=== PATIENT | male | born 1970 | race Caucasian/White ===

== ENCOUNTER 2017-09-13 17:58 | Emergency (ER) | payer OTHER ==
[~2017-09-13] VITALS: Ht 170.2 cm; Wt 72.6 kg
[2017-09-13 18:54] VITALS: BP 134/90
[2017-09-13 19:36] LABS: APPEARANCE,URINE HAZY (CLEAR); BILIRUBIN,URINE NEGATIVE (NEGATIVE); BLOOD, URINE NEGATIVE (NEGATIVE); COLOR,URINE YELLOW (YELLOW); LEUKOCYTE ESTERASE ,URINE NEGATIVE (NEGATIVE); NITRITE, URINE NEGATIVE (NEGATIVE); UGLUCOSE 3+ (NEGATIVE)
[2017-09-13 19:38] LABS: BASOPHILS # (AUTO) 0.3 K/uL (0.00-0.22); EOSINOPHILS # (AUTO) 0.2 K/uL (0-0.4); HEMOGLOBIN 15.3 g/dL (12.0-18.0); MEAN CORPUSCULAR HEMOGLOBIN 28 pg (27-31); MEAN CORPUSCULAR HGB CONC 32 g/dL (33-37); MEAN CORPUSCULAR VOLUME 88 fL (80-94); MONOCYTES # (AUTO) 0.5 K/uL (0.8-1.0); NEUTROPHILS # (AUTO) 4.7 K/uL (1.8-7.7); PLATELET COUNT (AUTO) 322 K/uL (140-450); RED BLOOD CELL COUNT(AUTO) 5.44 MIL/uL (4.20-6.10); RED CELL DISTRIBUTION WIDTH 12.5 % (11.6-13.7); WHITE BLOOD COUNT (AUTO) 7.7 K/uL (4.8-10.8)
[2017-09-13 19:52] LABS: RBC,URINE 3-10 (FEW) /HPF (0-5)
[2017-09-13 19:53] LABS: WBC,URINE 0-5 (RARE) /HPF (0-5)
[2017-09-13 19:56] LABS: PROTHROMBIN TIME 10.1 secs (10.8-13.4)
[2017-09-13 20:01] LABS: ALBUMIN 3.6 g/dL (3.4-5.0); ANION GAP 8.9 (8-16); CARBON DIOXIDE 30.1 mmol/L (21-32); CREATININE 1.1 mg/dL (0.7-1.3); TOTAL BILIRUBIN 0.4 mg/dL (0.0-1.0)
--- NOTE | 2017-09-13 20:28 | NUR ---
Pt taken to bed 4.
[2017-09-13 21:01] VITALS: BP 131/87
--- NOTE | 2017-09-13 21:04 | NUR ---
47Y/M PT. PRESENTS TO ED WITH C/O UNPROVOKED LEFT SIDED CP X THIS AM, RADIATING TO LEFT SCAPULA, DENIES INJURY/TRAUMA. HX. DM, HTN. AAO X4, AMBULATORY WITH STDEAY GAIT. REPSIRATIONS ROOM AIR, EVEN AND UNLABORED, BL LUNGS CLEAR. C/O CHEST PAIN WHEN MOVE 5/10. VSS, ER MD MADE AWARE OF PT. STATUS.
--- NOTE | 2017-09-13 22:31 | NUR ---
PATIENT ELOPED FROM FACILITY. DISCHARGE INSTRUCTIONS NOT GIVEN TO PATIENT. DR. POWELL NOTIFIED.
== END 2017-09-13 22:31 | disposition left against medical advice (07) ==
LOC: MED 17:58
DX: R07.89 Other chest pain (principal); E11.9 Type 2 diabetes mellitus without complications; I10 Essential (primary) hypertension
CPT/HCPCS: 36415; 71010; 80053; 81001; 82948; 84484; 85025; 85610; 93005; 99285; Q0092

== ENCOUNTER 2019-10-03 00:12 | Emergency (ER) | payer OTHER ==
[~2019-10-03] VITALS: Ht 172.7 cm; Wt 68.0 kg
[2019-10-03 00:17] VITALS: BP 147/90
[2019-10-03 00:45] VITALS: BP 138/77
== END 2019-10-03 00:45 | disposition home or self-care (01) ==
LOC: MED 00:12
DX: L02.811 Cutaneous abscess of head [any part, except face] (principal); E11.9 Type 2 diabetes mellitus without complications
CPT/HCPCS: 99283

== ENCOUNTER 2020-05-05 04:19 | Emergency (ER) | payer OTHER ==
[~2020-05-05] VITALS: Ht 172.7 cm; Wt 77.1 kg
[2020-05-05 04:32] VITALS: BP 142/91
--- NOTE | 2020-05-05 04:36 | NUR ---
PT AMBULATED TO BED 10 WITH STEADY GAIT.
--- NOTE | 2020-05-05 04:51 | NUR ---
Dr. Maurice examining patient.
[2020-05-05] MEDS ORDERED: LIDOCAINE/EPI 1% 1:100000 20 ML VIAL INJ ONE ×2 (04:52→04:55)
[2020-05-05] MEDS ORDERED: cephALEXin 500 MG CAP PO ONE (04:55)
[2020-05-05] MEDS ORDERED: levETIRAcetam 500 MG TAB ONE (04:56)
[2020-05-05 04:59] VITALS: BP 142/91
--- NOTE | 2020-05-05 04:59 | NUR ---
50M PRESENTS TO ED WITH C/O RT HAND SPIDER BITE. DENIES SOB/COUGH. STATES HAPPENED YESTERDAY WHILE AT WORK. DENIES N/V/D. PMHX: DENIES NKA
--- NOTE | 2020-05-05 05:01 | NUR ---
SCOTT BOONE AT BEDSIDE PERFORMING I&D PROCEDURE
[2020-05-05] MEDS ORDERED: BACITRACIN OINT 500 UNITS/GM PKT TP ONE ×2 (05:05→05:40)
== END 2020-05-05 05:39 | disposition home or self-care (01) ==
LOC: MED 04:19
DX: L02.511 Cutaneous abscess of right hand (principal); E11.9 Type 2 diabetes mellitus without complications
CPT/HCPCS: 10060; 99283; J2001; 12001

== ENCOUNTER 2021-02-22 16:12 | Emergency (ER) | payer SELFPAY ==
[~2021-02-22] VITALS: Ht 172.7 cm; Wt 77.1 kg
[2021-02-22 16:19] VITALS: BP 150/81
--- NOTE | 2021-02-22 16:28 | NUR ---
BIB SELF C/O ABASION WOUND AT SCAL[facility] X 4 DAYS. BLOOD SUGAR 401 AT THIS TIME. RUN OUT OF METFORMIN 2 MONTHS.PMH: DM. DENIES N/V/D;AAOX4 WITH EVEN AND STEADY GAIT; LUNGS CLEAR BL; HR EVEN AND REGULAR; PT DENIES ANY FEVER, CP, SOB, OR COUGH AT THIS TIME; PATIENT STATES PAIN OF 8/10 AT THIS TIME.
[2021-02-22] MEDS ORDERED: KETOROLAC 30 MG/ML VIAL IM ONE (16:40)
[2021-02-22] MEDS ORDERED: cephALEXin 500 MG CAP PO ONE (16:40)
[2021-02-22] MEDS ORDERED: CEPH-588 PO (17:23)
[2021-02-22] MEDS ORDERED: BACTO TP (17:23)
[2021-02-22] MEDS ORDERED: IBUP-2213 PO (17:23)
[2021-02-22] MEDS ORDERED: NACL 0.9% 1,000 ML IV SCH (17:25)
--- NOTE | 2021-02-22 17:30 | NUR ---
Note kathryn in EDM - 02/22/21 at 1734 by [facility] Patient discharged with v/s stable. Written and verbal after care instructions given and explained. Patient alert, oriented and verbalized understanding of instructions. Ambulatory with steady gait. All questions addressed prior to discharge. ID band removed. Patient advised to follow up with PMD. Rx of Amoxcillin/Potassium Clav given. Patient educated on indication of medication including possible reaction and side effects. Opportunity to ask questions provided and answered.
--- NOTE | 2021-02-22 17:31 | NUR ---
PT AMB TO BED 8
--- NOTE | 2021-02-22 17:46 | NUR ---
PT NOT ABLE TO URINATE AT THIS TIME
[2021-02-22 17:47] LABS: BASOPHILS % (AUTO) 0.4 % (0.0-2.0); EOSINOPHILS # (AUTO) 0.1 K/uL (0-0.4); EOSINOPHILS % (AUTO) 0.5 % (0.0-4.0); HEMATOCRIT 41.8 % (36-52); HEMOGLOBIN 14.2 g/dL (12.0-18.0); LYMPHOCYTES # (AUTO) 1.4 K/uL (2.0-11.5); LYMPHOCYTES % (AUTO) 10.9 % (20.5-51.1); MEAN CORPUSCULAR HEMOGLOBIN 30 pg (27-31); MEAN CORPUSCULAR HGB CONC 34 g/dL (33-37); MEAN CORPUSCULAR VOLUME 87.3 fL (80-94); MONOCYTES # (AUTO) 1.2 K/uL (0.8-1.0); MONOCYTES % (AUTO) 9.7 % (1.7-9.3); NEUTROPHILS % (AUTO) 78.5 % (42.2-75.2); PLATELET COUNT (AUTO) 288 K/uL (140-450); RED BLOOD CELL COUNT(AUTO) 4.79 MIL/uL (4.20-6.10); RED CELL DISTRIBUTION WIDTH 13.3 % (11.6-13.7); WHITE BLOOD COUNT (AUTO) 12.7 K/uL (4.8-10.8)
[2021-02-22 18:06] LABS: ALBUMIN 2.7 g/dL (3.4-5.0); ANION GAP 9.8 (8-16); CARBON DIOXIDE 28.5 mmol/L (21-32); CREATININE 1.4 mg/dL (0.6-1.3); POTASSIUM 4.3 mmol/L (3.5-5.1); TOTAL BILIRUBIN 0.4 mg/dL (0.0-1.0)
[2021-02-22] MEDS ORDERED: METF500T PO (19:05)
--- NOTE | 2021-02-22 19:10 | NUR ---
RECIEVED REPORT FROM MILAGROS GORDON FOR CHANGE OF SHIFT.
[2021-02-22 19:17] VITALS: BP 142/78
--- NOTE | 2021-02-22 19:17 | NUR ---
Patient discharged with v/s stable. Written and verbal after care instructions given and explained. Patient alert, oriented and verbalized understanding of instructions. Ambulatory with steady gait. All questions addressed prior to discharge. ID band removed. Patient advised to follow up with PMD. Rx of BACTROBAN, KEFLEX, IBUPROFEN, GLUCOPHAGE given. Patient educated on indication of medication including possible reaction and side effects. Opportunity to ask questions provided and answered.
[2021-02-22 19:37] LABS: APPEARANCE,URINE CLEAR (CLEAR); BILIRUBIN,URINE NEGATIVE (NEGATIVE); BLOOD, URINE 1+ (NEGATIVE); COLOR,URINE YELLOW (YELLOW); LEUKOCYTE ESTERASE ,URINE NEGATIVE (NEGATIVE); NITRITE, URINE NEGATIVE (NEGATIVE); UGLUCOSE 3+ (NEGATIVE)
[2021-02-22 20:00] LABS: RBC,URINE 0-5 /HPF (0-5); WBC,URINE 0-5 /HPF (0-5)
== END 2021-02-22 19:17 | disposition home or self-care (01) ==
LOC: MED 16:12
DX: L03.811 Cellulitis of head [any part, except face] (principal); E11.65 Type 2 diabetes mellitus with hyperglycemia
CPT/HCPCS: 36415; 80053; 81001; 85025; 96360; 96372; 99283; J1885; J7030; 96361; 96374

== ENCOUNTER 2021-11-15 09:15 | Emergency (ER) | payer SELFPAY ==
[~2021-11-15] VITALS: Ht 175.3 cm; Wt 77.1 kg
[~2021-11-15 09:15] MED LIST: BACTO TP; CEPH-588 PO; IBUP-2213 PO; METF500T PO
[2021-11-15 09:37] VITALS: BP 131/86
--- NOTE | 2021-11-15 09:40 | NUR ---
BIB SELF C/O SUBJECTIVE FEVER, SORE THROAT X 2DAYS. PMH: DM.DENIES N/V/D; SKIN IS PINK/WARM/DRY; AAOX4 WITH EVEN AND STEADY GAIT; LUNGS CLEAR BL; HR EVEN AND REGULAR; PT DENIES ANY FEVER, CP, SOB, OR COUGH AT THIS TIME; PATIENT STATES PAIN OF 6/10 AT THIS TIME.
--- NOTE | 2021-11-15 09:43 | NUR ---
TENT 1.
[2021-11-15] MEDS ORDERED: NAPR-1704 PO (09:54)
[2021-11-15] MEDS ORDERED: METF-1243 PO (09:55)
--- NOTE | 2021-11-15 09:55 | NUR ---
COVID PCR SWAB DONE.
[2021-11-15 10:24] VITALS: BP 131/86
--- NOTE | 2021-11-15 10:25 | NUR ---
Patient discharged with v/s stable. Written and verbal after care instructions given and explained. Patient alert, oriented and verbalized understanding of instructions. Ambulatory with steady gait. All questions addressed prior to discharge. ID band removed. Patient advised to follow up with PMD. Rx of METFORIM AND NAPROXEN given. Patient educated on indication of medication including possible reaction and side effects. Opportunity to ask questions provided and answered.
== END 2021-11-15 10:24 | disposition home or self-care (01) ==
LOC: MED 09:15
DX: E11.65 Type 2 diabetes mellitus with hyperglycemia (principal); Z20.822 Contact with and (suspected) exposure to COVID-19; J02.9 Acute pharyngitis, unspecified; I10 Essential (primary) hypertension; Z79.899 Other long term (current) drug therapy; Z79.84 Long term (current) use of oral hypoglycemic drugs
CPT/HCPCS: 99283; U0003

== ENCOUNTER 2022-01-02 17:54 | Emergency (ER) | payer OTHER, SELFPAY ==
[~2022-01-02] VITALS: Ht 172.7 cm; Wt 77.1 kg
[~2022-01-02 17:54] MED LIST changes: +METF-1243 PO; +NAPR-1704 PO
[2022-01-02 17:57] VITALS: BP 142/75
[2022-01-02] MEDS ORDERED: BACITRACIN OINT 500 UNITS/GM PKT TP ONE (18:30)
[2022-01-02] MEDS ORDERED: ACETAMINOPHEN 325 MG TAB PO ONE (18:30)
[2022-01-02] MEDS ORDERED: KETOROLAC 60 MG/2 ML VIAL IM ONE (18:30)
--- NOTE | 2022-01-02 18:30 | NUR ---
AT PT BEDSIDE
[2022-01-02] MEDS ORDERED: NACL 0.9% 1,000 ML IV ONE (18:35)
--- NOTE | 2022-01-02 18:36 | NUR ---
PT TAKEN TO XRAY VIA W/C
[2022-01-02] MEDS ORDERED: HYDROcodone/APAP 5/325 MG 1 TAB TAB PO ONE (19:10)
--- NOTE | 2022-01-02 19:23 | NUR ---
51 Y/O MALE BIB FAMILY C/O RIGHT SHOULDER PAIN , RIGHT CHEST & RIGHT BACK S/P TC X TODAY. PAIN RATED 8/10. DENIES LOC. BLOOD SUGAR 580 AT THIS TIME. PT RUN OUT OF METFORMIN 4 MONTHS. PMH: DM
--- NOTE | 2022-01-02 19:30 | NUR ---
Pt report given to MILAGROS ESCOTO. Transfer of care at this time.
[2022-01-02 19:54] LABS: BASOPHILS # (AUTO) 0.1 K/uL (0.00-0.22); BASOPHILS % (AUTO) 0.3 % (0.0-2.0); EOSINOPHILS % (AUTO) 0.3 % (0.0-4.0); HEMATOCRIT 42.7 % (36-52); HEMOGLOBIN 14.5 g/dL (12.0-18.0); LYMPHOCYTES # (AUTO) 0.9 K/uL (2.0-11.5); LYMPHOCYTES % (AUTO) 5.7 % (20.5-51.1); MEAN CORPUSCULAR HEMOGLOBIN 29 pg (27-31); MEAN CORPUSCULAR HGB CONC 34 g/dL (33-37); MEAN CORPUSCULAR VOLUME 86.5 fL (80-94); MONOCYTES # (AUTO) 0.8 K/uL (0.8-1.0); MONOCYTES % (AUTO) 4.9 % (1.7-9.3); NEUTROPHILS # (AUTO) 14.1 K/uL (1.8-7.7); NEUTROPHILS % (AUTO) 88.8 % (42.2-75.2); PLATELET COUNT (AUTO) 333 K/uL (140-450); RED BLOOD CELL COUNT(AUTO) 4.93 MIL/uL (4.20-6.10); RED CELL DISTRIBUTION WIDTH 13.8 % (11.6-13.7); WHITE BLOOD COUNT (AUTO) 15.9 K/uL (4.8-10.8)
--- NOTE | 2022-01-02 20:00 | NUR ---
RECEIVED PT IN [facility] 15 DENIES PAIN OR DISCOMFORT. IV INTACT AND PATENT INFUSING FLUIDS PER ORDER. PENDING FURTHER RESULTS NAD.
[2022-01-02 20:23] LABS: ALBUMIN 3.2 g/dL (3.4-5.0); ANION GAP 11.2 (8-16); CARBON DIOXIDE 28.2 mmol/L (21-32); CREATININE 1.5 mg/dL (0.6-1.3); POTASSIUM 4.4 mmol/L (3.5-5.1); TOTAL BILIRUBIN 0.5 mg/dL (0.0-1.0)
[2022-01-02] MEDS ORDERED: INSULIN REGULAR, HUMAN 100 UNIT/ML VIAL SUBQ ONE (21:35)
[2022-01-02] MEDS ORDERED: METF-1243 PO (22:02)
[2022-01-02] MEDS ORDERED: LID5T TP (22:02)
[2022-01-02] MEDS ORDERED: ACET-8386 PO (22:02)
[2022-01-02] MEDS ORDERED: NAPR-54 PO (22:02)
[2022-01-02 22:20] VITALS: BP 121/80
--- NOTE | 2022-01-02 22:21 | NUR ---
Patient discharged with v/s stable. Written and verbal after care instructions given and explained. Patient alert, oriented and verbalized understanding of instructions. Wheel Chair Assisted with steady gait. All questions addressed prior to discharge. ID band removed. Patient advised to follow up with PMD. Rx of NORCO, NAPROXEN, METFORMIN given. Patient educated on indication of medication including possible reaction and side effects. Opportunity to ask questions provided and answered.
== END 2022-01-02 22:21 | disposition home or self-care (01) ==
LOC: MED 17:54
DX: S42.031A Displaced fracture of lateral end of right clavicle, initial encounter for closed fracture (principal); S42.121A Displaced fracture of acromial process, right shoulder, initial encounter for closed fracture; S22.41XA Multiple fractures of ribs, right side, initial encounter for closed fracture; G89.11 Acute pain due to trauma; E11.9 Type 2 diabetes mellitus without complications; I10 Essential (primary) hypertension; Z79.84 Long term (current) use of oral hypoglycemic drugs; Z79.899 Other long term (current) drug therapy; V23.9XXA Unspecified motorcycle rider injured in collision with car, pick-up truck or van in traffic accident, initial encounter; Y93.55 Activity, bike riding; Y92.89 Other specified places as the place of occurrence of the external cause; Y99.8 Other external cause status
CPT/HCPCS: 36415; 70450; 71045; 71250; 72080; 73000; 73030; 73502; 80053; 85025; 90471; 90715; 96360; 96372; 99285; J1815; J1885; J7030

== ENCOUNTER 2022-12-23 22:25 | Emergency (ER) | payer MEDICAID, OTHER ==
[~2022-12-23] VITALS: Ht 172.7 cm; Wt 67.6 kg
[~2022-12-23 22:25] MED LIST changes: +ACET-8905 PO; -IBUP-2213 PO; +LID5T TP; +METF-346 PO; -METF500T PO; -NAPR-1704 PO; +NAPR-54 PO
[2022-12-23 22:30] VITALS: BP_SYST 127; BP_SYST 144; BP_DIAS 67; BP_DIAS 78
--- NOTE | 2022-12-23 22:30 | NUR ---
TO BED AMBULATORY
[2022-12-23 23:30] LABS: ANION GAP 12.7 (8-16); CARBON DIOXIDE 26.5 mmol/L (21-32); POTASSIUM 4.2 mmol/L (3.5-5.1)
[2022-12-23 23:56] LABS: BARBITURATE, URINE NEGATIVE ng/ml (NEG <=200); BENZODIAZEPINE, URINE NEGATIVE ng/mL (NEG <=200); CANNABINOID, URINE NEGATIVE ng/mL (NEG <=50); COCAINE, URINE NEGATIVE ng/mL (NEG <=300); OPIATE, URINE NEGATIVE ng/mL (NEG <=2000); PHENCYCLIDINE SCREEN,URINE NEGATIVE ng/mL (NEG <=25)
[2022-12-24] MEDS ORDERED: ALBU0.0912 IH (00:21)
[2022-12-24] MEDS ORDERED: ROB PO (00:21)
--- NOTE | 2022-12-24 01:25 | NUR ---
PATIENT ELOPED FROM FACILITY. DISCHARGE INSTRUCTIONS NOT GIVEN TO PATIENT. DR. GALLAGHER NOTIFIED.
== END 2022-12-24 01:25 | disposition home or self-care (01) ==
LOC: MED 22:25
DX: R05.9 Cough, unspecified (principal); F15.10 Other stimulant abuse, uncomplicated; Z20.822 Contact with and (suspected) exposure to COVID-19; E11.9 Type 2 diabetes mellitus without complications; I10 Essential (primary) hypertension; Z79.899 Other long term (current) drug therapy; Z79.1 Long term (current) use of non-steroidal anti-inflammatories (NSAID); Z79.891 Long term (current) use of opiate analgesic; Z79.2 Long term (current) use of antibiotics
CPT/HCPCS: 36415; 71045; 80048; 80305; 87426; 99284; Q0092

== ENCOUNTER 2023-04-14 16:34 | Emergency (ER) | payer OTHER ==
[~2023-04-14] VITALS: Ht 172.7 cm; Wt 73.5 kg
[~2023-04-14 16:34] MED LIST changes: +ALBU0.0912 IH; +AZIT250T4 PO; +ROB PO
[2023-04-14 17:00] VITALS: BP 153/107; PULSE 86; RESP 16; TEMP 98.1; O2SAT 98
[2023-04-14 17:11] VITALS: O2SAT 98
[2023-04-14 17:35] LABS: BASOPHILS # (AUTO) 0.1 K/uL (0.00-0.22); BASOPHILS % (AUTO) 0.8 % (0.0-2.0); EOSINOPHILS # (AUTO) 0.2 K/uL (0-0.4); EOSINOPHILS % (AUTO) 2.1 % (0.0-4.0); HEMATOCRIT 35.1 % (36-52); HEMOGLOBIN 12.1 g/dL (12.0-18.0); LYMPHOCYTES # (AUTO) 1.1 K/uL (2.0-11.5); LYMPHOCYTES % (AUTO) 14.2 % (20.5-51.1); MEAN CORPUSCULAR HEMOGLOBIN 30 pg (27-31); MEAN CORPUSCULAR HGB CONC 34 g/dL (33-37); MONOCYTES # (AUTO) 0.5 K/uL (0.8-1.0); MONOCYTES % (AUTO) 6.2 % (1.7-9.3); NEUTROPHILS # (AUTO) 6.2 K/uL (1.8-7.7); NEUTROPHILS % (AUTO) 76.7 % (42.2-75.2); PLATELET COUNT (AUTO) 313 K/uL (140-450); RED BLOOD CELL COUNT(AUTO) 4.09 MIL/uL (4.20-6.10); RED CELL DISTRIBUTION WIDTH 14.5 % (11.6-13.7); WHITE BLOOD COUNT (AUTO) 8.1 K/uL (4.8-10.8)
[2023-04-14 18:15] LABS: ALBUMIN 2.7 g/dL (3.4-5.0); ANION GAP 9.6 (8-16); CARBON DIOXIDE 27.2 mmol/L (21-32); POTASSIUM 4.8 mmol/L (3.5-5.1); TOTAL BILIRUBIN 0.3 mg/dL (0.0-1.0)
[2023-04-14] MEDS ORDERED: KETOROLAC 30 MG/ML VIAL IM ONE (18:30)
[2023-04-14] MEDS ORDERED: NAPR-1704 PO (19:05)
[2023-04-14] MEDS ORDERED: ACET-10509 PO (19:05)
[2023-04-14] MEDS ORDERED: KETOROLAC 30 MG/ML VIAL ONE (19:42)
== END 2023-04-14 20:02 | disposition home or self-care (01) ==
LOC: MED 16:34
DX: R07.89 Other chest pain (principal); Z20.822 Contact with and (suspected) exposure to COVID-19; I12.9 Hypertensive chronic kidney disease with stage 1 through stage 4 chronic kidney disease, or unspecified chronic kidney disease; E11.22 Type 2 diabetes mellitus with diabetic chronic kidney disease; N18.9 Chronic kidney disease, unspecified; Z79.4 Long term (current) use of insulin; Z79.899 Other long term (current) drug therapy
CPT/HCPCS: 36415; 71045; 80053; 83880; 84484; 85025; 87426; 87804; 93005; 96372; 99285; J1885

== ENCOUNTER 2023-08-17 18:03 | Emergency (ER) | payer OTHER ==
[~2023-08-17] VITALS: Ht 172.7 cm; Wt 65.8 kg
[~2023-08-17 18:03] MED LIST changes: +ACET-10509 PO; +NAPR-1704 PO
[2023-08-17 18:19] VITALS: BP 171/80; PULSE 68; RESP 15; TEMP 98; O2SAT 100
[2023-08-17] MEDS ORDERED: HYDROcodone/APAP 7.5/325 MG 1 TAB PO ONE (18:55)
[2023-08-17] MEDS ORDERED: ACET-8905 PO (19:37)
== END 2023-08-17 19:58 | disposition home or self-care (01) ==
LOC: MED 18:03
DX: S82.451A Displaced comminuted fracture of shaft of right fibula, initial encounter for closed fracture (principal); S20.211A Contusion of right front wall of thorax, initial encounter; E11.9 Type 2 diabetes mellitus without complications; I10 Essential (primary) hypertension; Z79.4 Long term (current) use of insulin; Z79.899 Other long term (current) drug therapy; W18.39XA Other fall on same level, initial encounter; Y93.89 Activity, other specified; Y92.89 Other specified places as the place of occurrence of the external cause; Y99.8 Other external cause status
CPT/HCPCS: 29505; 71101; 73562; 73590; 99284

== ENCOUNTER 2023-10-07 06:23 | Emergency (ER) | payer OTHER ==
[~2023-10-07] VITALS: Ht 175.3 cm; Wt 72.6 kg
[2023-10-07 06:33] VITALS: BP 153/100; PULSE 94; RESP 21; TEMP 98.2; O2SAT 98
[2023-10-07] MEDS ORDERED: KETOROLAC 60 MG/2 ML VIAL IM ONE (06:50)
[2023-10-07] MEDS ORDERED: PRED20TA5 PO (06:55)
[2023-10-07] MEDS ORDERED: IBUP-2213 PO (06:55)
[2023-10-07 07:09] VITALS: BP 153/100; PULSE 94; RESP 21; TEMP 98.2; O2SAT 98
== END 2023-10-07 07:09 | disposition home or self-care (01) ==
LOC: MED 06:23
DX: R05.9 Cough, unspecified (principal); M79.10 Myalgia, unspecified site; E11.9 Type 2 diabetes mellitus without complications; Z79.4 Long term (current) use of insulin; Z79.899 Other long term (current) drug therapy
CPT/HCPCS: 96372; 99283; J1885

== ENCOUNTER 2023-11-26 03:55 | Inpatient (IN) | payer OTHER ==
[~2023-11-26] VITALS: Ht 175.3 cm; Wt 68.0 kg
[~2023-11-26 03:55] MED LIST changes: +IBUP-2213 PO; +PRED20TA5 PO
[2023-11-26 04:05] VITALS: BP 189/117; PULSE 103; RESP 18; TEMP 97.8; O2SAT 100
[2023-11-26 05:59] LABS: APPEARANCE,URINE CLEAR (CLEAR); BILIRUBIN,URINE NEGATIVE (NEGATIVE); BLOOD, URINE 2+ (NEGATIVE); COLOR,URINE YELLOW (YELLOW); LEUKOCYTE ESTERASE ,URINE NEGATIVE (NEGATIVE); NITRITE, URINE NEGATIVE (NEGATIVE); PROTEIN,URINE 3+ (NEGATIVE); UGLUCOSE 1+ (NEGATIVE); UROBILINOGEN,URINE 0.2 EU/dL (0.2 - 1)
[2023-11-26 06:04] LABS: BACTERIA,URINE 10-30 (MOD) /HPF (None Seen); MUCUS,URINE 1+ /LPF (None Seen)
[2023-11-26 07:06] LABS: BASOPHILS # (AUTO) 0.1 K/uL (0.00-0.22); BASOPHILS % (AUTO) 0.9 % (0.0-2.0); EOSINOPHILS # (AUTO) 0.2 K/uL (0-0.4); EOSINOPHILS % (AUTO) 3.1 % (0.0-4.0); HEMATOCRIT 26.3 % (36-52); HEMOGLOBIN 8.8 g/dL (12.0-18.0); LYMPHOCYTES # (AUTO) 0.9 K/uL (2.0-11.5); LYMPHOCYTES % (AUTO) 12.9 % (20.5-51.1); MEAN CORPUSCULAR HEMOGLOBIN 30 pg (27-31); MEAN CORPUSCULAR HGB CONC 34 g/dL (33-37); MEAN CORPUSCULAR VOLUME 89.4 fL (80-94); MONOCYTES # (AUTO) 0.4 K/uL (0.8-1.0); MONOCYTES % (AUTO) 5.2 % (1.7-9.3); NEUTROPHILS # (AUTO) 5.4 K/uL (1.8-7.7); NEUTROPHILS % (AUTO) 77.9 % (42.2-75.2); PLATELET COUNT (AUTO) 356 K/uL (140-450); RED BLOOD CELL COUNT(AUTO) 2.94 MIL/uL (4.20-6.10); RED CELL DISTRIBUTION WIDTH 15.2 % (11.6-13.7)
[2023-11-26 07:14] LABS: ANION GAP 14.6 (8-16); CALCIUM 8.4 mg/dL (8.5-10.1); POTASSIUM 4.6 mmol/L (3.5-5.1)
[2023-11-26 07:25] LABS: CREATININE 4.3 mg/dL (0.6-1.3)
[2023-11-26 07:33] LABS: ALBUMIN 2.5 g/dL (3.4-5.0); TOTAL PROTEIN, SERUM 7.6 g/dL (6.4-8.2)
[2023-11-26] MEDS ORDERED: hydrALAZINE 20 MG/ML VIAL ONE (07:37)
[2023-11-26] MEDS ORDERED: FUROSEMIDE 40 MG/4 ML VIAL IVP ONE (07:38)
[2023-11-26] MEDS: hydrALAZINE 20 MG/ML VIAL IVP ONE (07:43)
[2023-11-26] MEDS: FUROSEMIDE 40 MG/4 ML VIAL IVP ONE (07:44)
[2023-11-26 07:48] LABS: TOTAL BILIRUBIN 0.1 mg/dL (0.0-1.0)
[2023-11-26] MEDS: FUROSEMIDE 40 MG/4 ML VIAL IVP SCH (08:20)
[2023-11-26] MEDS: ASPIRIN 81 MG TAB.CHEW PO ONE (08:20)
[2023-11-26] MEDS ORDERED: DEXTROSE 50% 50 ML SYR IVP PRN (09:05)
[2023-11-26] MEDS ORDERED: MORPHINE SULFATE 4 MG/ML SYR IVP PRN (09:05)
[2023-11-26] MEDS ORDERED: POTASSIUM CHLORIDE 10 MEQ TABER PO PRN (09:05)
[2023-11-26] MEDS ORDERED: KCL 20 MEQ IN 100 mL PREMIX 200 ML IV PRN (09:05)
[2023-11-26] MEDS ORDERED: MAGNESIUM OXIDE 400 MG TAB PO PRN (09:05)
[2023-11-26] MEDS ORDERED: ACETAMINOPHEN 325 MG TAB PO PRN (09:05)
[2023-11-26] MEDS ORDERED: hydrALAZINE 20 MG/ML VIAL IVP PRN (09:05)
[2023-11-26] MEDS ORDERED: ONDANSETRON 4 MG/2 ML VIAL IVP PRN (09:05)
[2023-11-26] MEDS: NIFEdipine 30 MG TABER PO SCH (09:19)
[2023-11-26] MEDS ORDERED: cefTRIAXone 1,000 MG VIAL ONE (10:12)
[2023-11-26] MEDS: INSULIN LISPRO SLIDING SCALE 100 UNITS/ML VIAL SUBQ PRN (11:37)
[2023-11-26] MEDS: BLOOD GLUCOSE MONITORING 1 DEV DEV FS SCH (11:37)
[2023-11-27 06:50] LABS: BASOPHILS # (AUTO) 0.1 K/uL (0.00-0.22); BASOPHILS % (AUTO) 1.2 % (0.0-2.0); EOSINOPHILS # (AUTO) 0.3 K/uL (0-0.4); EOSINOPHILS % (AUTO) 4.3 % (0.0-4.0); HEMATOCRIT 25.2 % (36-52); HEMOGLOBIN 8.4 g/dL (12.0-18.0); LYMPHOCYTES % (AUTO) 14.9 % (20.5-51.1); MEAN CORPUSCULAR HEMOGLOBIN 30 pg (27-31); MEAN CORPUSCULAR HGB CONC 34 g/dL (33-37); MEAN CORPUSCULAR VOLUME 89.8 fL (80-94); MONOCYTES # (AUTO) 0.3 K/uL (0.8-1.0); MONOCYTES % (AUTO) 5.1 % (1.7-9.3); NEUTROPHILS % (AUTO) 74.5 % (42.2-75.2); PLATELET COUNT (AUTO) 325 K/uL (140-450); RED BLOOD CELL COUNT(AUTO) 2.81 MIL/uL (4.20-6.10); RED CELL DISTRIBUTION WIDTH 15.1 % (11.6-13.7); WHITE BLOOD COUNT (AUTO) 6.7 K/uL (4.8-10.8)
[2023-11-27 06:58] LABS: ANION GAP 14.6 (8-16); CALCIUM 8.1 mg/dL (8.5-10.1); CARBON DIOXIDE 19.3 mmol/L (21-32); POTASSIUM 4.9 mmol/L (3.5-5.1)
[2023-11-27 07:07] LABS: CREATININE 4.5 mg/dL (0.6-1.3)
[2023-11-27 08:00] VITALS: BP 146/84; PULSE 68; PULSE 88; RESP 18; TEMP 96.9; O2SAT 99
[2023-11-27] MEDS: atenoloL 25 MG TAB PO SCH (10:30)
[2023-11-27] MEDS: DOCUSATE SODIUM 100 MG GELCAP PO SCH (10:30)
[2023-11-27 12:00] VITALS: BP 115/71; PULSE 70; PULSE 72; RESP 18; TEMP 97.9; O2SAT 99
[2023-11-27 16:00] VITALS: BP 118/70; PULSE 70; PULSE 71; RESP 18; TEMP 98.3; O2SAT 99
[2023-11-27] MEDS: NACL 0.9% 1,000 ML IV SCH (18:56)
[2023-11-27 20:00] VITALS: BP 118/70; PULSE 59; PULSE 73; RESP 18; TEMP 97.7; O2SAT 98
[2023-11-27] MEDS: ZOLPIDEM 5 MG TAB PO PRN (23:35)
[2023-11-28] VITALS: BP 136/79; PULSE 75; PULSE 76; RESP 18; TEMP 97.8; O2SAT 96
[2023-11-28 04:00] VITALS: BP 142/95; PULSE 53; PULSE 77; RESP 18; TEMP 97.6; O2SAT 95
[2023-11-28 05:14] LABS: BASOPHILS # (AUTO) 0.1 K/uL (0.00-0.22); BASOPHILS % (AUTO) 1.4 % (0.0-2.0); EOSINOPHILS # (AUTO) 0.3 K/uL (0-0.4); EOSINOPHILS % (AUTO) 4.8 % (0.0-4.0); HEMATOCRIT 24.9 % (36-52); HEMOGLOBIN 8.4 g/dL (12.0-18.0); LYMPHOCYTES # (AUTO) 1.1 K/uL (2.0-11.5); LYMPHOCYTES % (AUTO) 17.8 % (20.5-51.1); MEAN CORPUSCULAR HEMOGLOBIN 30 pg (27-31); MEAN CORPUSCULAR HGB CONC 34 g/dL (33-37); MEAN CORPUSCULAR VOLUME 89.4 fL (80-94); MONOCYTES # (AUTO) 0.4 K/uL (0.8-1.0); MONOCYTES % (AUTO) 6.7 % (1.7-9.3); NEUTROPHILS # (AUTO) 4.3 K/uL (1.8-7.7); NEUTROPHILS % (AUTO) 69.3 % (42.2-75.2); PLATELET COUNT (AUTO) 338 K/uL (140-450); RED BLOOD CELL COUNT(AUTO) 2.78 MIL/uL (4.20-6.10); RED CELL DISTRIBUTION WIDTH 15.2 % (11.6-13.7); WHITE BLOOD COUNT (AUTO) 6.2 K/uL (4.8-10.8)
[2023-11-28 05:37] LABS: ANION GAP 12.8 (8-16); POTASSIUM 4.8 mmol/L (3.5-5.1)
[2023-11-28] MEDS: HYDROcodone/APAP 5/325 MG 1 TAB TAB PO PRN (05:56)
[2023-11-28 06:08] LABS: CREATININE 4.7 mg/dL (0.6-1.3)
[2023-11-28 08:00] VITALS: BP 140/94; PULSE 71; PULSE 73; RESP 18; TEMP 96.9; O2SAT 97
[2023-11-28 12:00] VITALS: BP 138/86; PULSE 71; RESP 18; TEMP 98; O2SAT 98
[2023-11-28 16:00] VITALS: BP 138/90; PULSE 70; PULSE 72; RESP 19; TEMP 97.1; O2SAT 98
[2023-11-28] MEDS: ALPRAZolam 0.5 MG TAB PO PRN (18:05)
[2023-11-28 20:00] VITALS: BP 122/82; PULSE 70; PULSE 71; RESP 18; TEMP 96.9; O2SAT 95; O2SAT 97
== END 2023-11-29 07:40 | disposition left against medical advice (07) | DRG 470 ==
LOC: MED 03:55 → MTU 09:03
PROVIDERS: ADMIT Student in an Organized Health Care Education/Training Program; ATTEND Student in an Organized Health Care Education/Training Program
DX: I12.9 Hypertensive chronic kidney disease with stage 1 through stage 4 chronic kidney disease, or unspecified chronic kidney disease (principal); N17.0 Acute kidney failure with tubular necrosis; I50.21 Acute systolic (congestive) heart failure; E44.1 Mild protein-calorie malnutrition; R64 Cachexia; E11.9 Type 2 diabetes mellitus without complications; E78.5 Hyperlipidemia, unspecified; N18.9 Chronic kidney disease, unspecified; I16.9 Hypertensive crisis, unspecified; M79.89 Other specified soft tissue disorders; Z53.29 Procedure and treatment not carried out because of patient's decision for other reasons; Z79.84 Long term (current) use of oral hypoglycemic drugs; Z79.899 Other long term (current) drug therapy; Z68.22 Body mass index [BMI] 22.0-22.9, adult
CPT/HCPCS: 36415; 71045; 76770; 80048; 80076; 81001; 82570; 82948; 83735; 83880; 84156; 84484; 85025; 87081; 87086; 93005; 96374; 99285; J0360; J0696; J1644; J1815; J1940; J7060; Q0092

== ENCOUNTER 2024-01-17 04:21 | Emergency (ER) | payer OTHER ==
[~2024-01-17] VITALS: Ht 172.7 cm; Wt 74.8 kg
[~2024-01-17 04:21] MED LIST changes: -ACET-10509 PO; -ACET-8905 PO; -ALBU0.0912 IH; -AZIT250T4 PO; -BACTO TP; -CEPH-588 PO; -IBUP-2213 PO; -LID5T TP; -METF-346 PO; -NAPR-1704 PO; -NAPR-54 PO; -PRED20TA5 PO; -ROB PO
[2024-01-17 04:29] VITALS: BP 155/90; PULSE 94; RESP 18; TEMP 97.8; O2SAT 98
[2024-01-17] MEDS ORDERED: FURO-570 PO (05:12)
[2024-01-17] MEDS ORDERED: AMLO10TA PO (05:12)
[2024-01-17] MEDS ORDERED: GLIP5TER PO (05:12)
[2024-01-17] MEDS ORDERED: HYDR-3233 PO (05:12)
[2024-01-17] MEDS ORDERED: AMOX1TAB8 PO (05:31)
[2024-01-17] MEDS ORDERED: AZIT250T4 PO (05:31)
[2024-01-17] MEDS: ACETAMINOPHEN 325 MG TAB PO ONE (05:41)
[2024-01-17 05:50] VITALS: BP 147/73; PULSE 73; RESP 20; TEMP 98; O2SAT 98
[2024-01-17 07:35] LABS: FLU A ANTIGEN negative (NEGATIVE); FLU B ANTIGEN negative (NEGATIVE)
== END 2024-01-17 05:50 | disposition home or self-care (01) ==
LOC: MED 04:21
DX: J18.9 Pneumonia, unspecified organism (principal); Z20.822 Contact with and (suspected) exposure to COVID-19; E11.22 Type 2 diabetes mellitus with diabetic chronic kidney disease; I12.0 Hypertensive chronic kidney disease with stage 5 chronic kidney disease or end stage renal disease; N18.6 End stage renal disease; Z99.2 Dependence on renal dialysis; Z79.899 Other long term (current) drug therapy
CPT/HCPCS: 71045; 87426; 87804; 99284; Q0092

== ENCOUNTER 2024-02-03 11:21 | Emergency (ER) | payer OTHER ==
[~2024-02-03] VITALS: Ht 175.3 cm; Wt 72.6 kg
[~2024-02-03 11:21] MED LIST changes: +AMLO10TA PO; +AMOX1TAB8 PO; +AZIT250T4 PO; +FURO-570 PO; +GLIP5TER PO; +HYDR-3233 PO; -METF-1243 PO
[2024-02-03 11:29] VITALS: BP 167/98; PULSE 97; RESP 16; TEMP 98.3; O2SAT 100
[2024-02-03 11:30] VITALS: BP 167/98; RESP 16; TEMP 97.4
[2024-02-03 11:41] VITALS: PULSE 83; O2SAT 95
[2024-02-03 11:45] LABS: BASOPHILS # (AUTO) 0.1 K/uL (0.00-0.22); BASOPHILS % (AUTO) 0.7 % (0.0-2.0); EOSINOPHILS # (AUTO) 0.3 K/uL (0-0.4); EOSINOPHILS % (AUTO) 3.9 % (0.0-4.0); HEMATOCRIT 23.4 % (36-52); HEMOGLOBIN 8.2 g/dL (12.0-18.0); LYMPHOCYTES # (AUTO) 0.7 K/uL (2.0-11.5); MEAN CORPUSCULAR HEMOGLOBIN 30 pg (27-31); MEAN CORPUSCULAR HGB CONC 35 g/dL (33-37); MEAN CORPUSCULAR VOLUME 84.9 fL (80-94); MONOCYTES # (AUTO) 0.5 K/uL (0.8-1.0); MONOCYTES % (AUTO) 6.4 % (1.7-9.3); NEUTROPHILS # (AUTO) 5.9 K/uL (1.8-7.7); NEUTROPHILS % (AUTO) 79.3 % (42.2-75.2); PLATELET COUNT (AUTO) 244 K/uL (140-450); RED BLOOD CELL COUNT(AUTO) 2.76 MIL/uL (4.20-6.10); RED CELL DISTRIBUTION WIDTH 16.2 % (11.6-13.7); WHITE BLOOD COUNT (AUTO) 7.4 K/uL (4.8-10.8)
[2024-02-03 11:56] LABS: ANION GAP 17.3 (8-16); CARBON DIOXIDE 22.7 mmol/L (21-32)
[2024-02-03 12:01] LABS: CREATININE 6.1 mg/dL (0.6-1.3); LYMPHOCYTES % (AUTO) 9.7 % (20.5-51.1)
[2024-02-03 12:02] LABS: ALANINE AMINOTRANSFERASE 55 U/L (12-78); ALBUMIN 3.2 g/dL (3.4-5.0); ALKALINE PHOSPHATASE 104 U/L (50-136); ASPARTATE AMINOTRANSFERASE 44 U/L (15-37); BILIRUBIN,DIRECT 0.1 mg/dL (0.0-0.3); TOTAL BILIRUBIN 0.4 mg/dL (0.0-1.0); TOTAL PROTEIN, SERUM 6.9 g/dL (6.4-8.2)
[2024-02-03] MEDS: FUROSEMIDE 40 MG/4 ML VIAL IVP ONE (13:35)
== END 2024-02-03 13:49 | disposition home or self-care (01) ==
LOC: MED 11:21
DX: R06.02 Shortness of breath (principal); E11.22 Type 2 diabetes mellitus with diabetic chronic kidney disease; I12.0 Hypertensive chronic kidney disease with stage 5 chronic kidney disease or end stage renal disease; N18.6 End stage renal disease; Z99.2 Dependence on renal dialysis; Z79.84 Long term (current) use of oral hypoglycemic drugs; Z79.899 Other long term (current) drug therapy; Z88.6 Allergy status to analgesic agent
CPT/HCPCS: 36415; 71045; 80048; 80076; 83880; 84484; 85025; 93005; 96374; 99285; J1940

== ENCOUNTER 2024-02-07 06:56 | Emergency (ER) | payer OTHER ==
[~2024-02-07] VITALS: Ht 175.3 cm; Wt 68.0 kg
[2024-02-07 07:04] VITALS: BP 144/103; PULSE 82; RESP 18; TEMP 98; O2SAT 99
[2024-02-07 07:20] VITALS: BP 144/103; PULSE 82; RESP 18; TEMP 98; O2SAT 99
[2024-02-07] MEDS ORDERED: ONDANSETRON 4 MG ODT PO ONE (07:25)
[2024-02-07] MEDS ORDERED: MORPHINE SULFATE 4 MG/ML SYR IM ONE (07:25)
[2024-02-07 07:57] LABS: BASOPHILS # (AUTO) 0.1 K/uL (0.00-0.22); BASOPHILS % (AUTO) 0.7 % (0.0-2.0); EOSINOPHILS # (AUTO) 0.4 K/uL (0-0.4); EOSINOPHILS % (AUTO) 5.6 % (0.0-4.0); HEMATOCRIT 26.3 % (36-52); LYMPHOCYTES % (AUTO) 13.7 % (20.5-51.1); MEAN CORPUSCULAR HEMOGLOBIN 30 pg (27-31); MEAN CORPUSCULAR HGB CONC 34 g/dL (33-37); MONOCYTES # (AUTO) 0.5 K/uL (0.8-1.0); MONOCYTES % (AUTO) 6.8 % (1.7-9.3); NEUTROPHILS # (AUTO) 5.4 K/uL (1.8-7.7); NEUTROPHILS % (AUTO) 73.2 % (42.2-75.2); PLATELET COUNT (AUTO) 259 K/uL (140-450); RED BLOOD CELL COUNT(AUTO) 3.06 MIL/uL (4.20-6.10); RED CELL DISTRIBUTION WIDTH 16.3 % (11.6-13.7); WHITE BLOOD COUNT (AUTO) 7.4 K/uL (4.8-10.8)
[2024-02-07 08:22] LABS: ALBUMIN 3.1 g/dL (3.4-5.0); ANION GAP 13.9 (8-16); CARBON DIOXIDE 27.3 mmol/L (21-32); POTASSIUM 5.2 mmol/L (3.5-5.1); TOTAL BILIRUBIN 0.3 mg/dL (0.0-1.0); TOTAL PROTEIN, SERUM 6.9 g/dL (6.4-8.2)
[2024-02-07 08:31] LABS: CREATININE 5.6 mg/dL (0.6-1.3)
== END 2024-02-07 08:49 | disposition left against medical advice (07) ==
LOC: MED 06:56
DX: R10.33 Periumbilical pain (principal); D64.9 Anemia, unspecified; E87.5 Hyperkalemia; N18.6 End stage renal disease; Z99.2 Dependence on renal dialysis; Z79.899 Other long term (current) drug therapy
CPT/HCPCS: 36415; 80053; 83690; 85025; 99283

== ENCOUNTER 2024-02-12 08:17 | Emergency (ER) | payer OTHER ==
[~2024-02-12] VITALS: Ht 172.7 cm; Wt 72.6 kg
[2024-02-12 08:31] VITALS: BP 167/82; PULSE 94; RESP 18; TEMP 98.3; O2SAT 99
[2024-02-12] MEDS: NACL 0.9% 500 ML IV ONE (09:13)
[2024-02-12 09:14] LABS: BASOPHILS % (AUTO) 0.2 % (0.0-2.0); EOSINOPHILS # (AUTO) 0.2 K/uL (0-0.4); EOSINOPHILS % (AUTO) 1.6 % (0.0-4.0); HEMATOCRIT 30.5 % (36-52); HEMOGLOBIN 10.4 g/dL (12.0-18.0); LYMPHOCYTES # (AUTO) 0.4 K/uL (2.0-11.5); LYMPHOCYTES % (AUTO) 3.6 % (20.5-51.1); MEAN CORPUSCULAR HEMOGLOBIN 29 pg (27-31); MEAN CORPUSCULAR HGB CONC 34 g/dL (33-37); MEAN CORPUSCULAR VOLUME 85.7 fL (80-94); MONOCYTES # (AUTO) 0.5 K/uL (0.8-1.0); NEUTROPHILS # (AUTO) 10.5 K/uL (1.8-7.7); NEUTROPHILS % (AUTO) 90.6 % (42.2-75.2); PLATELET COUNT (AUTO) 318 K/uL (140-450); RED BLOOD CELL COUNT(AUTO) 3.56 MIL/uL (4.20-6.10); RED CELL DISTRIBUTION WIDTH 17.4 % (11.6-13.7); WHITE BLOOD COUNT (AUTO) 11.6 K/uL (4.8-10.8)
[2024-02-12 09:29] LABS: ANION GAP 15.5 (8-16); CALCIUM 8.9 mg/dL (8.5-10.1); CARBON DIOXIDE 27.1 mmol/L (21-32); POTASSIUM 4.6 mmol/L (3.5-5.1)
[2024-02-12] MEDS: ONDANSETRON 4 MG/2 ML VIAL IVP ONE (09:34)
[2024-02-12] MEDS: FAMOTIDINE 20 MG/2 ML VIAL IVP ONE (09:34)
[2024-02-12 09:51] LABS: ALBUMIN 3.7 g/dL (3.4-5.0); BILIRUBIN,DIRECT 0.1 mg/dL (0.0-0.3); TOTAL BILIRUBIN 0.5 mg/dL (0.0-1.0); TOTAL PROTEIN, SERUM 7.8 g/dL (6.4-8.2)
[2024-02-12] MEDS ORDERED: LOPE-289 PO (10:28)
[2024-02-12 10:40] VITALS: BP 141/73; PULSE 95; RESP 16; TEMP 98.3; O2SAT 99
== END 2024-02-12 10:40 | disposition home or self-care (01) ==
LOC: MED 08:17
DX: E86.0 Dehydration (principal); R11.2 Nausea with vomiting, unspecified; R55 Syncope and collapse; I12.0 Hypertensive chronic kidney disease with stage 5 chronic kidney disease or end stage renal disease; E11.22 Type 2 diabetes mellitus with diabetic chronic kidney disease; N18.6 End stage renal disease; Z99.2 Dependence on renal dialysis; Z79.84 Long term (current) use of oral hypoglycemic drugs; Z79.899 Other long term (current) drug therapy; Z88.6 Allergy status to analgesic agent
CPT/HCPCS: 36415; 71045; 80048; 80076; 83690; 84484; 85025; 93005; 96361; 96374; 96375; 99285; J2405; J3490; J7030

== ENCOUNTER 2024-02-14 06:06 | Emergency (ER) | payer OTHER ==
[~2024-02-14] VITALS: Ht 175.3 cm; Wt 68.0 kg
[~2024-02-14 06:06] MED LIST changes: +LOPE-289 PO; +METF-1243 PO
[2024-02-14 06:19] VITALS: BP 129/78; PULSE 77; RESP 18; TEMP 97.7; O2SAT 98
[2024-02-14] MEDS: fentaNYL citrate 0.05 MG/ML VIAL IM ONE (07:03)
[2024-02-14] MEDS: ACETAMINOPHEN EXTRA STRENGTH 500 MG TAB PO ONE (07:13)
[2024-02-14] MEDS ORDERED: ACET-10509 PO (09:20)
[2024-02-14 09:43] VITALS: BP 129/78; PULSE 68; RESP 18; TEMP 97.7; O2SAT 98
== END 2024-02-14 09:43 | disposition home or self-care (01) ==
LOC: MED 06:06
DX: R10.9 Unspecified abdominal pain (principal); M79.18 Myalgia, other site; E11.22 Type 2 diabetes mellitus with diabetic chronic kidney disease; I13.2 Hypertensive heart and chronic kidney disease with heart failure and with stage 5 chronic kidney disease, or end stage renal disease; I50.9 Heart failure, unspecified; N18.6 End stage renal disease; Z99.2 Dependence on renal dialysis; Z79.899 Other long term (current) drug therapy; Z88.6 Allergy status to analgesic agent
CPT/HCPCS: 81002; 96372; 99283; J3010

== ENCOUNTER 2024-03-21 22:51 | Emergency (ER) | payer OTHER ==
[~2024-03-21] VITALS: Ht 172.7 cm; Wt 72.6 kg
[~2024-03-21 22:51] MED LIST changes: +ACET-10509 PO; -METF-1243 PO
[2024-03-21 23:12] VITALS: BP 162/92; PULSE 78; RESP 18; TEMP 98; O2SAT 97
[2024-03-21] MEDS: FAMOTIDINE 20 MG TAB PO ONE (23:43)
[2024-03-21] MEDS: ACETAMINOPHEN EXTRA STRENGTH 500 MG TAB PO ONE (23:44)
[2024-03-21] MEDS: CALCIUM CARBONATE 500 MG TAB.CHEW PO ONE (23:44)
[2024-03-22 00:40] VITALS: BP 166/105; PULSE 80; RESP 18; O2SAT 100
== END 2024-03-22 00:54 | disposition home or self-care (01) ==
LOC: MED 22:55
DX: K30 Functional dyspepsia (principal); I13.2 Hypertensive heart and chronic kidney disease with heart failure and with stage 5 chronic kidney disease, or end stage renal disease; E11.22 Type 2 diabetes mellitus with diabetic chronic kidney disease; N18.6 End stage renal disease; I50.9 Heart failure, unspecified; Z99.2 Dependence on renal dialysis; Z79.84 Long term (current) use of oral hypoglycemic drugs; Z79.1 Long term (current) use of non-steroidal anti-inflammatories (NSAID); Z79.2 Long term (current) use of antibiotics; Z79.899 Other long term (current) drug therapy; Z88.6 Allergy status to analgesic agent
CPT/HCPCS: 99284

== ENCOUNTER 2024-06-05 19:45 | Emergency (ER) | payer OTHER ==
[~2024-06-05] VITALS: Ht 175.3 cm; Wt 90.7 kg
[2024-06-05 19:46] VITALS: BP 146/90; PULSE 88; RESP 16; TEMP 97.2; O2SAT 98
== END 2024-06-05 20:31 | disposition left against medical advice (07) ==
LOC: MED 19:45
DX: R51.9 Headache, unspecified (principal); E11.9 Type 2 diabetes mellitus without complications; Z53.21 Procedure and treatment not carried out due to patient leaving prior to being seen by health care provider

== ENCOUNTER 2024-07-24 22:00 | Inpatient (IN) | payer OTHER ==
[~2024-07-24] VITALS: Ht 172.7 cm; Wt 76.2 kg
[~2024-07-24 22:00] MED LIST changes: -ACET-10509 PO; +ACET500T99 PO
[2024-07-24 22:01] VITALS: BP 160/80; PULSE 74; RESP 18; TEMP 98.1; O2SAT 97
[2024-07-24 22:10] VITALS: O2SAT 97
[2024-07-24 22:23] LABS: BASOPHILS # (AUTO) 0.2 K/uL (0.00-0.22); BASOPHILS % (AUTO) 3.6 % (0.0-2.0); EOSINOPHILS # (AUTO) 0.3 K/uL (0-0.4); EOSINOPHILS % (AUTO) 4.4 % (0.0-4.0); HEMATOCRIT 30.7 % (36-52); HEMOGLOBIN 10.4 g/dL (12.0-18.0); LYMPHOCYTES # (AUTO) 0.5 K/uL (2.0-11.5); LYMPHOCYTES % (AUTO) 8.3 % (20.5-51.1); MEAN CORPUSCULAR HEMOGLOBIN 30 pg (27-31); MEAN CORPUSCULAR HGB CONC 34 g/dL (33-37); MONOCYTES # (AUTO) 0.5 K/uL (0.8-1.0); MONOCYTES % (AUTO) 7.3 % (1.7-9.3); NEUTROPHILS # (AUTO) 4.8 K/uL (1.8-7.7); NEUTROPHILS % (AUTO) 76.4 % (42.2-75.2); PLATELET COUNT (AUTO) 267 K/uL (140-450); RED BLOOD CELL COUNT(AUTO) 3.45 MIL/uL (4.20-6.10); RED CELL DISTRIBUTION WIDTH 15.6 % (11.6-13.7); WHITE BLOOD COUNT (AUTO) 6.3 K/uL (4.8-10.8)
[2024-07-24 22:32] LABS: CALCIUM 7.7 mg/dL (8.5-10.1); CARBON DIOXIDE 28.8 mmol/L (21-32); POTASSIUM 3.8 mmol/L (3.5-5.1)
[2024-07-24 22:36] LABS: CREATININE 6.7 mg/dL (0.6-1.3)
[2024-07-24] MEDS: MORPHINE SULFATE 4 MG/ML SYR IVP ONE (22:55)
[2024-07-24] MEDS ORDERED: MORPHINE SULFATE 2 MG/ML SYR IVP PRN (23:40)
[2024-07-24] MEDS ORDERED: ONDANSETRON 4 MG/2 ML VIAL IVP PRN (23:40)
[2024-07-24] MEDS ORDERED: LORazepam 2 MG/ML VIAL IVP PRN (23:40)
[2024-07-24] MEDS ORDERED: HYDROcodone/APAP 5/325 MG 1 TAB TAB PO PRN (23:40)
[2024-07-24] MEDS ORDERED: ZOLPIDEM 5 MG TAB PO PRN (23:40)
[2024-07-24] MEDS ORDERED: DEXTROSE 50% 50 ML SYR IVP PRN (23:40)
[2024-07-25] VITALS (8 sets, daily range): BP systolic 141–165; BP diastolic 67–94; PULSE 73–82; RESP 18–19; TEMP 97.3–98; O2SAT 95–100
[2024-07-25] MEDS ORDERED: HYDR-1100 PO (00:31)
[2024-07-25] MEDS ORDERED: ONDA-188 PO (00:31)
[2024-07-25] MEDS ORDERED: SUCR500C PO (00:31)
[2024-07-25] MEDS: hydrALAZINE 25 MG TAB PO ONE (03:13)
[2024-07-25 04:46] LABS: BASOPHILS # (AUTO) 0.1 K/uL (0.00-0.22); EOSINOPHILS # (AUTO) 0.2 K/uL (0-0.4); EOSINOPHILS % (AUTO) 3.2 % (0.0-4.0); HEMATOCRIT 29.6 % (36-52); HEMOGLOBIN 10.3 g/dL (12.0-18.0); LYMPHOCYTES # (AUTO) 0.9 K/uL (2.0-11.5); LYMPHOCYTES % (AUTO) 12.1 % (20.5-51.1); MEAN CORPUSCULAR HEMOGLOBIN 31 pg (27-31); MEAN CORPUSCULAR HGB CONC 35 g/dL (33-37); MEAN CORPUSCULAR VOLUME 89.3 fL (80-94); MONOCYTES # (AUTO) 0.5 K/uL (0.8-1.0); MONOCYTES % (AUTO) 7.1 % (1.7-9.3); NEUTROPHILS # (AUTO) 5.6 K/uL (1.8-7.7); NEUTROPHILS % (AUTO) 76.6 % (42.2-75.2); PLATELET COUNT (AUTO) 255 K/uL (140-450); RED BLOOD CELL COUNT(AUTO) 3.31 MIL/uL (4.20-6.10); RED CELL DISTRIBUTION WIDTH 15.6 % (11.6-13.7); WHITE BLOOD COUNT (AUTO) 7.4 K/uL (4.8-10.8)
[2024-07-25 05:13] LABS: ALBUMIN 3.2 g/dL (3.4-5.0); ANION GAP 10.7 (8-16); CALCIUM 7.8 mg/dL (8.5-10.1); CARBON DIOXIDE 31.2 mmol/L (21-32); MAGNESIUM 2.1 mg/dL (1.8-2.4); POTASSIUM 3.9 mmol/L (3.5-5.1); TOTAL BILIRUBIN 0.5 mg/dL (0.0-1.0)
[2024-07-25 05:17] LABS: CREATININE 7.3 mg/dL (0.6-1.3)
[2024-07-25] MEDS: BLOOD GLUCOSE MONITORING 1 DEV DEV FS SCH ×2 (06:42→20:56)
[2024-07-25] MEDS: INSULIN LISPRO SLIDING SCALE 100 UNITS/ML VIAL SUBQ PRN (06:44)
[2024-07-25] MEDS: MEDS-TO-BEDS MC SCH (09:00)
[2024-07-25] MEDS: ASPIRIN 81 MG TAB.CHEW PO SCH (10:22)
[2024-07-25] MEDS: DOCUSATE SODIUM 100 MG GELCAP PO SCH (10:22)
[2024-07-25] MEDS: hydrALAZINE 25 MG TAB PO SCH (10:23)
[2024-07-25] MEDS ORDERED: INSULIN LISPRO SLIDING SCALE 100 UNITS/ML VIAL SUBQ PRN (17:30)
[2024-07-25] MEDS ORDERED: DEXTROSE 50% 50 ML SYR IVP PRN (17:30)
[2024-07-26] VITALS: BP 158/88; PULSE 88; PULSE 90; RESP 18; TEMP 98.1; O2SAT 97
[2024-07-26] MEDS: ACETAMINOPHEN 325 MG TAB PO PRN (03:49)
[2024-07-26 04:00] VITALS: BP 159/81; PULSE 76; PULSE 79; RESP 18; TEMP 97.8; O2SAT 98
[2024-07-26 05:38] LABS: BASOPHILS # (AUTO) 0.1 K/uL (0.00-0.22); BASOPHILS % (AUTO) 0.9 % (0.0-2.0); EOSINOPHILS # (AUTO) 0.3 K/uL (0-0.4); EOSINOPHILS % (AUTO) 5.1 % (0.0-4.0); HEMATOCRIT 28.7 % (36-52); HEMOGLOBIN 10.1 g/dL (12.0-18.0); LYMPHOCYTES # (AUTO) 0.9 K/uL (2.0-11.5); LYMPHOCYTES % (AUTO) 14.1 % (20.5-51.1); MEAN CORPUSCULAR HEMOGLOBIN 32 pg (27-31); MEAN CORPUSCULAR HGB CONC 35 g/dL (33-37); MEAN CORPUSCULAR VOLUME 89.6 fL (80-94); MONOCYTES # (AUTO) 0.6 K/uL (0.8-1.0); MONOCYTES % (AUTO) 8.4 % (1.7-9.3); NEUTROPHILS # (AUTO) 4.8 K/uL (1.8-7.7); NEUTROPHILS % (AUTO) 71.5 % (42.2-75.2); PLATELET COUNT (AUTO) 258 K/uL (140-450); RED CELL DISTRIBUTION WIDTH 15.6 % (11.6-13.7); WHITE BLOOD COUNT (AUTO) 6.7 K/uL (4.8-10.8)
[2024-07-26] MEDS: amLODIPine 5 MG TAB PO SCH (09:57)
[2024-07-26 10:00] LABS: ANION GAP 14.2 (8-16); CALCIUM 7.7 mg/dL (8.5-10.1); CARBON DIOXIDE 25.9 mmol/L (21-32); POTASSIUM 4.1 mmol/L (3.5-5.1)
[2024-07-26 10:05] LABS: CREATININE 9.5 mg/dL (0.6-1.3)
== END 2024-07-26 15:05 | disposition home or self-care (01) | DRG 203 ==
LOC: MED 22:00 → OBSVTOIN 23:42 → MTU 23:42
PROVIDERS: ADMIT Internal Medicine; ATTEND Internal Medicine
DX: M94.0 Chondrocostal junction syndrome [Tietze] (principal); I13.2 Hypertensive heart and chronic kidney disease with heart failure and with stage 5 chronic kidney disease, or end stage renal disease; N18.6 End stage renal disease; E11.22 Type 2 diabetes mellitus with diabetic chronic kidney disease; D63.1 Anemia in chronic kidney disease; E83.51 Hypocalcemia; E78.5 Hyperlipidemia, unspecified; Z99.2 Dependence on renal dialysis; Z79.899 Other long term (current) drug therapy; Z88.8 Allergy status to other drugs, medicaments and biological substances
CPT/HCPCS: 36415; 71045; 80048; 80053; 82948; 83735; 83880; 84484; 85025; 87081; 93005; 96374; 99285; J1644; J1815; J2270; Q0092